=== PATIENT | male | born 1990 | race Two or more races ===

== ENCOUNTER 2020-10-15 13:56 | Emergency (ER) | payer OTHER ==
[~2020-10-15] VITALS: Ht 193 cm; Wt 93.0 kg
== END 2020-10-15 21:10 | disposition home or self-care (01) ==
LOC: ER 13:56
DX: M94.0 Chondrocostal junction syndrome [Tietze] (principal)

== ENCOUNTER 2021-02-02 20:14 | Emergency (ER) | payer OTHER ==
[~2021-02-02] VITALS: Ht 193 cm; Wt 92.1 kg
[2021-02-03] MEDS ORDERED: PEPCID AC20 MG PO (00:22)
[2021-02-03] MEDS ORDERED: INTESTINEX680 M2 PO (00:22)
[2021-02-03] MEDS ORDERED: LEVSIN0.125 MG PO (00:22)
[2021-02-03] MEDS ORDERED: NORFLEX100MG PO (00:22)
== END 2021-02-03 00:56 | disposition home or self-care (01) ==
LOC: ER 20:14
DX: R11.2 Nausea with vomiting, unspecified (principal); R10.9 Unspecified abdominal pain; R19.7 Diarrhea, unspecified

== ENCOUNTER 2021-09-16 05:51 | Emergency (ER) | payer OTHER ==
[~2021-09-16] VITALS: Ht 193 cm; Wt 95.3 kg
[~2021-09-16 05:51] MED LIST: INTESTINEX680 M2 PO; LEVSIN0.125 MG PO; NORFLEX100MG PO; PEPCID AC20 MG PO
[2021-09-16] MEDS ORDERED: INTESTINEX680 M1 PO (13:05)
[2021-09-16] MEDS ORDERED: PEPCID AC20 MG PO (13:05)
== END 2021-09-16 13:12 | disposition home or self-care (01) ==
LOC: ER 05:51
DX: R19.7 Diarrhea, unspecified (principal); E87.1 Hypo-osmolality and hyponatremia